=== PATIENT | female | born 1940 | race Caucasian/White ===

== ENCOUNTER 2016-07-10 12:25 | Emergency (ER) | payer OTHER ==
[2016-07-10 12:44] VITALS: RESP 16
[2016-07-10] MEDS ORDERED: NS 500 ML IV ONE ×2 (12:47→14:03)
[2016-07-10 13:04] LABS: ABSOLUTE IMMATURE GRANULOCYTES 0.14 10^3/uL (0.00-0.10); ADD DIFF? NO; ADD MORPH? NO; ADD SCAN? NO; ATYPICAL LYMPHOCYTE FLAG 20 (0-99); FRAGMENT RBC FLAG 0 (0-99); HEMATOCRIT 33.9 % (38.0-47.0); HEMOGLOBIN 12.1 g/dL (12.6-16.3); LEFT SHIFT FLG 0 (0-99); LIPEMIA HEMOLYSIS FLAG 90 (0-99); MEAN CELL HEMOGLOBIN 30.3 pg (27.9-34.1); MEAN CELL HEMOGLOBIN CONCENTR. 35.7 g/dL (32.4-36.7); PLATELET CLUMPS FLAG 10 (0-99); PLATELET COUNT 355 10^3/uL (150-400); RED BLOOD CELL COUNT 3.99 10^6/uL (4.18-5.33); RED CELL DISTRIBUTION WIDTH 12.5 % (11.5-15.2)
[2016-07-10 13:15] LABS: ALANINE AMINOTRANSFERASE 59 IU/L (9-52); ALBUMIN 3.1 g/dL (3.5-5.0); ALKALINE PHOSPHATASE 150 IU/L (38-126); ANION GAP 13 mEq/L (8-16); ASPARTATE AMINOTRANSFERASE 47 IU/L (14-46); BILIRUBIN,TOTAL 1.7 mg/dL (0.1-1.4); CALCIUM 8.6 mg/dL (8.5-10.4); CARBON DIOXIDE 23 mEq/l (22-31); CHLORIDE 92 mEq/L (97-110); CREATININE 0.6 mg/dL (0.6-1.0); GLOMERULAR FILTRATION RATE > 60; GLUCOSE 129 mg/dL (70-100); POTASSIUM 3.9 mEq/L (3.5-5.2); SODIUM 128 mEq/L (134-144); TOTAL PROTEIN 6.2 g/dL (6.3-8.2)
[2016-07-10] MEDS ORDERED: ONDANSETRON 4 MG/2 ML VIAL IVP ONE (13:25)
[2016-07-10 13:28] LABS: COLOR YELLOW; LEUKOCYTE ESTERASE,URINE NEGATIVE (NEGATIVE); NITRITE,URINE NEGATIVE (NEGATIVE)
[2016-07-10 13:40] LABS: MUCUS 2+ /lpf (NONE-1+)
[2016-07-10 13:41] LABS: AMORPHOUS 1+ /hpf (NONE-1+); BACTERIA TRACE /hpf (NONE SEEN)
--- NOTE | 2016-07-10 14:09 | UCPHY ---
H & P Patient Type: New Chief Complaint Nursing Narrative: C/o weakness, fatigue, weight loss, and nausea after returning from cruise 07/03/16. Pt states she had diarrhea on cruise that resolved 06/30/16. Denies abdominal pain, nausea. Time Seen by Provider: 07/10/16 12:48 HPI/ROS: This patient complains of a cough that she describes as a dry cough for past 10 days or so. She was prescribed a cough suppressant by her mid-level practitioner with persistent cough despite that. She started a cough suppressant on Saturday. She also complains of nausea, decreased appetite. She explains the symptoms 1st started while on a cruise on June 30 with diarrhea. The diarrhea has resolved after Imodium and she has actually not had a bowel movement now for 4 days. She reports mild abdominal discomfort in the upper half more than lower half of her belly as well. ROS: Fevers last week to 100. No high fevers or chills. No other constitutional symptoms. HEENT: No cold symptoms. Pulmonary: Cough is described in HPI. No pleuritic pain or respiratory distress. Cardiovascular: She denies any heart palpitations or lightheadedness. No chest pain. GI: Symptoms as per HPI otherwise negative. : No complaints. Her reports "this is the sickest that she has ever been, Doc." 10 point ROS is otherwise negative Source: Patient, Family (Patient's also provides history) Exam Limitations: No limitations - Personal History Current Tetanus Diphtheria and Acellular Pertussis (TDAP): Yes Tetanus Vaccine Date: 2007 - Medical/Surgical History PMH: Past surgical history of appendectomy when she was a child in [place] Hypercholesterolemia Hypertension Hx Asthma: No Hx Chronic Respiratory Disease: No Hx Diabetes: No Hx Cardiac Disease: Yes Hx Renal Disease: No Hx Cirrhosis: No Hx Alcoholism: No Hx HIV/AIDS: No Hx Splenectomy or Spleen Trauma: No Other PMH: [place] 2013, hyperlipidemia, HTN, appendectomy, tonsilectomy - Family History Significant Family History: No pertinent family hx - Social History Smoking Status: Never smoked Alcohol Use: None Drug Use: None Additional Social History: The couple return from their cruise on July 03. She did see the ship doctor who thought she had a viral illness causing her diarrhea at that time. - Physical Exam Exam: General Appearance: Pleasant petite 75-year-old female Alert, no distress. Eyes: Pupils equal and round no pallor or injection. ENT, Mouth: Mucous membranes dry. Respiratory: She has rhonchi at the left base. Otherwise clear to auscultation bilaterally. No respiratory distress. I appreciate no rales. No wheezing. Cardiovascular: Regular rate and rhythm. No murmur gallop or rub. No JVD. No peripheral edema. Gastrointestinal: Normoactive, soft, mild epigastric and right upper quadrant tenderness. Mild suprapubic tenderness. No guarding or rebound. Back: No CVA tenderness Neurological: Alert with no focal deficits. Skin: Warm and dry, no rashes. Musculoskeletal: Neck is supple nontender. Extremities are symmetrical, full range of motion. Psychiatric: Mood and affect normal DIFFERENTIAL DIAGNOSIS: After history and physical exam differential diagnosis was considered for pneumonia, Legionaire's, cholecystitis, diverticulitis, UTI Constitutional: Initial Vital Signs Temperature (C) 36.7 C 07/10/16 12:41 Heart Rate 92 07/10/16 12:41 Respiratory Rate 16 07/10/16 12:41 Blood Pressure 121/64 H 07/10/16 12:41 O2 Sat (%) 95 07/10/16 12:41 O2 Delivery Mode Room Air Allergies/Adverse Reactions: No Known Allergies Allergy (Verified 07/10/16 12:44) Home Medications: Medication Instructions Recorded Avapro 07/10/16 Ecotrin 07/10/16 Lipitor 07/10/16 Ondansetron Odt [Zofran Odt] 4 - 8 mg PO Q4PRN PRN #4 tab 07/10/16 Plavix 07/10/16 Promethazine HCl 07/10/16 levOFLOXACIN [Levaquin] 500 mg PO DAILY #6 tablet 07/10/16 Medical Decision Making - Diagnostics Imaging: Chest x-ray: Left lower lobe infiltrate by my interpretation consistent with pneumonia. Right upper quadrant ultrasound: Normal appearing liver and gallbladder with no evidence of cholestasis or gallstones per Dr. Martin who read the ultrasound ED Course/Re-evaluation: On review of labs patient has leukocytosis with white count around 14,000, mild hyponatremia, elevated alk-phos and LFTs-mild Given these initial results will pursue gallbladder ultrasound rule out cholecystitis She is treated for her pneumonia with expansion workup to include blood cultures and venous lactate with Levaquin p. o. after Zofran IV for mild nausea with improvement. Discussion: Patient here with pneumonia but negative for sepsis in terms of a negative SIRS criteria. Her lactate is normal. She appears well clinically and is tolerating good p.o. intake after Zofran. She does have mild hyponatremia as well they think is attributable to her anorexia and decreased p.o. intake versus mild SIADH due to pneumonia. I counseled regarding this. We did discuss the option of of admission but this patient much prefers to go home on Levaquin with close follow-up. - Data Points Laboratory Results: Laboratory Results 07/10/16 12:50 07/10/16 12:50 07/10/16 07/10/16 07/10/16 14:00 13:25 13:21 WBC RBC Hgb Hct MCV MCH MCHC RDW Plt Count MPV Neut % (Auto) Lymph % (Auto) [place] % (Auto) Eos % (Auto) Baso % (Auto) Nucleat RBC Rel Count Absolute Neuts (auto) Absolute Lymphs (auto) Absolute Monos (auto) Absolute Eos (auto) Absolute Basos (auto) Absolute Nucleated RBC Immature Gran % Immature Gran # VBG Lactic Acid 0.9 mmol/L mmol/L (0.7-2.1) Sodium Potassium Chloride Carbon Dioxide Anion Gap BUN Creatinine Estimated GFR Glucose Calcium Total Bilirubin AST ALT Alkaline Phosphatase Total Protein Albumin Lipase 33.0 IU/L IU/L (23-300) Urine Color YELLOW Urine Appearance HAZY Urine pH 6.0 (5.0-7.5) Ur Specific [place] 1.020 (1.002-1.030) Urine Protein TRACE H (NEGATIVE) Urine Ketones TRACE H (NEGATIVE) Urine Blood 1+ H (NEGATIVE) Urine Nitrate NEGATIVE (NEGATIVE) Urine Bilirubin POSITIVE H (NEGATIVE) Urine Urobilinogen 1.0 EU EU (0.2-1.0) Ur Leukocyte Esterase NEGATIVE (NEGATIVE) Urine RBC 1-3 /hpf /hpf (0-3) Urine WBC 5-10 /hpf H /hpf (0-3) Ur Epithelial Cells NONE SEEN /lpf /lpf (NONE-1+) Amorphous Sediment 1+ /hpf /hpf (NONE-1+) Urine Bacteria TRACE /hpf H /hpf (NONE SEEN) Hyaline Casts 5-10 /lpf H /lpf (0-1) Urine Mucus 2+ /lpf H /lpf (NONE-1+) Urine Glucose NEGATIVE (NEGATIVE) 07/10/16 07/10/16 12:50 12:50 WBC 14.27 10^3/uL H 10^3/uL (3.80-9.50) RBC 3.99 10^6/uL L 10^6/uL (4.18-5.33) Hgb 12.1 g/dL L g/dL (12.6-16.3) Hct 33.9 % L % (38.0-47.0) MCV 85.0 fL fL (81.5-99.8) MCH 30.3 pg pg (27.9-34.1) MCHC 35.7 g/dL g/dL (32.4-36.7) RDW 12.5 % % (11.5-15.2) Plt Count 355 10^3/uL 10^3/uL (150-400) MPV 9.0 fL fL (8.7-11.7) Neut % (Auto) 80.9 % H % (39.3-74.2) Lymph % (Auto) 6.0 % L % (15.0-45.0) [place] % (Auto) 11.8 % % (4.5-13.0) Eos % (Auto) 0.1 % L % (0.6-7.6) Baso % (Auto) 0.2 % L % (0.3-1.7) Nucleat RBC Rel Count 0.0 % % (0.0-0.2) Absolute Neuts (auto) 11.55 10^3/uL H 10^3/uL (1.70-6.50) Absolute Lymphs (auto) 0.85 10^3/uL L 10^3/uL (1.00-3.00) Absolute Monos (auto) 1.68 10^3/uL H 10^3/uL (0.30-0.80) Absolute Eos (auto) 0.02 10^3/uL L 10^3/uL (0.03-0.40) Absolute Basos (auto) 0.03 10^3/uL 10^3/uL (0.02-0.10) Absolute Nucleated RBC 0.00 10^3/uL 10^3/uL (0-0.01) Immature Gran % 1.0 % % (0.0-1.1) Immature Gran # 0.14 10^3/uL H 10^3/uL (0.00-0.10) VBG Lactic Acid Sodium 128 mEq/L L mEq/L (134-144) Potassium 3.9 mEq/L mEq/L (3.5-5.2) Chloride 92 mEq/L L mEq/L (97-110) Carbon Dioxide 23 mEq/l mEq/l (22-31) Anion Gap 13 mEq/L mEq/L (8-16) BUN 12 mg/dL mg/dL (7-23) Creatinine 0.6 mg/dL mg/dL (0.6-1.0) Estimated GFR > 60 Glucose 129 mg/dL H mg/dL (70-100) Calcium 8.6 mg/dL mg/dL (8.5-10.4) Total Bilirubin 1.7 mg/dL H mg/dL (0.1-1.4) AST 47 IU/L H IU/L (14-46) ALT 59 IU/L H IU/L (9-52) Alkaline Phosphatase 150 IU/L H IU/L (38-126) Total Protein 6.2 g/dL L g/dL (6.3-8.2) Albumin 3.1 g/dL L g/dL (3.5-5.0) Lipase Urine Color Urine Appearance Urine pH Ur Specific [place] Urine Protein Urine Ketones Urine Blood Urine Nitrate Urine Bilirubin Urine Urobilinogen Ur Leukocyte Esterase Urine RBC Urine WBC Ur Epithelial Cells Amorphous Sediment Urine Bacteria Hyaline Casts Urine Mucus Urine Glucose Medications Given: Discontinued Medications Sodium Chloride (Ns) 500 mls @ 0 mls/hr IV ONCE ONE PRN Reason: Wide Open Stop: 07/10/16 12:48 Last Admin: 07/10/16 13:20 Dose: 500 mls Sodium Chloride (Ns) 500 mls @ 0 mls/hr IV ONCE ONE PRN Reason: Wide Open Stop: 07/10/16 14:04 Last Admin: 07/10/16 14:07 Dose: 500 mls Levofloxacin (Levaquin) 500 mg PO EDNOW ONE PRN Reason: Protocol Stop: 07/10/16 13:25 Last Admin: 07/10/16 13:37 Dose: 500 mg Ondansetron HCl (Zofran) 4 mg IVP EDNOW ONE Stop: 07/10/16 13:26 Last Admin: 07/10/16 13:37 Dose: 4 mg Departure - Departure Disposition: Home, Routine, Self-Care Clinical Impression: Hyponatremia, Dehydration Pneumonia Qualifiers: Pneumonia type: due to unspecified organism Laterality: left Lung location: lower lobe of lung Qualified Code(s): J18.1 - Lobar pneumonia, unspecified organism Condition: Good Instructions: Community Acquired Pneumonia (ED) Additional Instructions: Diagnoses: 1. Pneumonia 2. Dehydration 3. Hyponatremia Plan: Drink plenty fluids such as electrolyte balance drinks like Gatorade or other. Salty food is okay for now. Levaquin antibiotic as prescribed for the next 6 days daily Colace stool softener if needed for constipation. Call primary care physician to arrange follow-up appointment for sometime within the next 3-5 days. Your electrolytes should be rechecked sometime over the next 5-10 days Zofran if needed for nausea Go to the emergency department for any significant worsening despite the treatment plan. Referrals: Verenice Rudolph MD [Primary Care Provider] - As per Instructions Prescriptions: levOFLOXACIN [Levaquin] 500 mg PO DAILY #6 tablet Ondansetron Odt [Zofran Odt] 4 - 8 mg PO Q4PRN PRN #4 tab PRN Reason: Vomiting - PQRS PQRS Measurement: 134: Depression screening and followup, PRIME MD-PHQ2 (12 years and older) Over the last 2 weeks, how often have you been bothered by any of the following problems? 1. Feeling down, depressed, or hopeless? 2. Little interest or pleasure in doing things? Patient answered no to both 1 and 2 130: Documentation of medications. Reviewed all patient medications, doses, route and frequency.]. 226: Do you smoke? [No.] 47: 65 and older: Advanced care planning. Patient designates surrogate decision maker as spouse. 51: 18 years old and older with diagnosis of COPD, spirometry performance. [NA 52: 18 years old and older with COPD and symptoms of COPD or FEV1<60% predicted prescribed a B Agonist. NA
[2016-07-10 14:42] VITALS: BP 138/72; PULSE 95; TEMP 97.9; O2SAT 95
== END 2016-07-10 14:42 | disposition home or self-care (01) ==
LOC: CED 12:25
DX: J18.1 Lobar pneumonia, unspecified organism (principal); E86.0 Dehydration; E87.1 Hypo-osmolality and hyponatremia
CPT/HCPCS: 71020; 76705; 96361; 96374; G0463; J2405; 80053-PO; 81003-PO; 81015-PO; 83605-PO; 83690-PO; 85025-PO; 99205-PO

== ENCOUNTER 2016-07-15 10:33 | Emergency (ER) | payer OTHER ==
[2016-07-15 10:46] VITALS: RESP 16
--- NOTE | 2016-07-15 11:51 | EDPHY ---
H & P Time Seen by Provider: 07/15/16 11:18 HPI/ROS: Chief complaint. Weakness, weight loss, difficulty eating HPI. Patient is a 75-year-old female with multiple problems. She has weakness and weight loss over the past 2 weeks. Symptoms began after she was on a cruise from [place] to [place] and back. Apparently there was a lot of gastrointestinal illness on the ship and she had presumed norovirus. She then developed a cough and was seen at [facility] on July 10 and diagnosed with left lower lobe pneumonia. It was also noted that she had elevated liver function test at that time and had a normal ultrasound of her liver and gallbladder. She is just finishing a course of Zithromax for her pneumonia and feels that her pneumonia symptoms are resolving. She has not had fever or shortness of breath. She does however have continued decreased appetite. ROS Constitutional. Weakness Eyes. no problems with vision ENT. no sore throat, no nasal drainage Cardiovascular. no chest pain Respiratory. Resolving cough Abdominal. Nausea without abdominal pain and decreased appetite . no problems urinating MS. no calf pain/swelling, no neck/back pain, no joint pain Skin. no rash Lymph. no swollen glands Neuro. no headache, no dizziness, no difficulty walking or with speech Past Medical/Surgical History: The past medical history is significant for an PA in 2013, dyslipidemia, hypertension, appendectomy, recent pneumonia Social History: , nonsmoker, no alcohol Smoking Status: Never smoked Physical Exam: General Appearance: Alert well-developed female mild distress vital signs are stable Eyes: Pupils equal and round no pallor or injection. ENT, Mouth: Mucous membranes are moist. Respiratory: There are no retractions, lungs are clear to auscultation. Cardiovascular: Regular rate and rhythm. Gastrointestinal: Abdomen is soft and nontender, no masses, bowel sounds normal. Neurological: Awake and alert, sensory and motor exams grossly normal. Skin: Warm and dry, no rashes. Musculoskeletal: Neck is supple nontender. Extremities symmetrical, full range of motion. Psychiatric: Patient is oriented X 3, there is no agitation. Constitutional: Initial Vital Signs Temperature (C) 36.4 C 07/15/16 10:41 Heart Rate 86 07/15/16 10:41 Respiratory Rate 16 07/15/16 10:41 Blood Pressure 132/73 H 07/15/16 10:41 O2 Sat (%) 97 07/15/16 10:41 O2 Delivery Mode Room Air Allergies/Adverse Reactions: No Known Allergies Allergy (Verified 07/15/16 10:46) Home Medications: Medication Instructions Recorded Avapro 07/10/16 Ecotrin 07/10/16 Lipitor 07/10/16 Ondansetron Odt [Zofran Odt] 4 - 8 mg PO Q4PRN PRN #4 tab 07/10/16 Plavix 07/10/16 Promethazine HCl 07/10/16 levOFLOXACIN [Levaquin] 500 mg PO DAILY #6 tablet 07/10/16 Ondansetron Odt [Zofran Odt] 4 mg PO Q4PRN PRN #7 tab 07/15/16 Medical Decision Making - Diagnostics Imaging: One-view chest x-ray interpreted by me shows resolving pneumonia Procedures: IV normal saline ED Course/Re-evaluation: On re-evaluation patient is stable. The patient and I discussed laboratory, imaging results. We discussed her elevated liver function tests. We discussed treatment plan and importance of follow-up and further evaluation. She expresses understanding and agreement I consulted and discussed the elevated liver function studies with Dr. Rene Martin , infectious Disease. I then ordered hepatitis a IgM study. He will follow the patient in the clinic The patient and her family tell me that she was not happy with her regular PCP as part of the workup for the these recent illnesses. She is in the process of changing positions. She would like to see an infectious disease physician as she is getting over these to recent illnesses of a gastroenteritis type illness and pneumonia Differential Diagnosis: Patient had previously hypo knee tree me a and this has resolved. She had an elevated white blood cell count with part of her diagnosis of pneumonia and this elevated white blood cell count hives resolved and her pneumonia seems to be improving. She has elevated liver function tests of unclear etiology though possible hepatitis or other viral syndrome. She had a negative ultrasound of her liver and gallbladder. - Data Points Laboratory Results: Laboratory Results 07/15/16 12:25 07/15/16 12:25 07/15/16 07/15/16 07/15/16 12:25 12:25 12:25 WBC 9.36 10^3/uL 10^3/uL (3.80-9.50) RBC 4.19 10^6/uL 10^6/uL (4.18-5.33) Hgb 12.7 g/dL g/dL (12.6-16.3) Hct 37.2 % L % (38.0-47.0) MCV 88.8 fL fL (81.5-99.8) MCH 30.3 pg pg (27.9-34.1) MCHC 34.1 g/dL g/dL (32.4-36.7) RDW 12.5 % % (11.5-15.2) Plt Count 420 10^3/uL H 10^3/uL (150-400) MPV 8.5 fL L fL (8.7-11.7) Neut % (Auto) 74.4 % H % (39.3-74.2) Lymph % (Auto) 12.7 % L % (15.0-45.0) [place] % (Auto) 10.6 % % (4.5-13.0) Eos % (Auto) 1.3 % % (0.6-7.6) Baso % (Auto) 0.4 % % (0.3-1.7) Nucleat RBC Rel Count 0.0 % % (0.0-0.2) Absolute Neuts (auto) 6.96 10^3/uL H 10^3/uL (1.70-6.50) Absolute Lymphs (auto) 1.19 10^3/uL 10^3/uL (1.00-3.00) Absolute Monos (auto) 0.99 10^3/uL H 10^3/uL (0.30-0.80) Absolute Eos (auto) 0.12 10^3/uL 10^3/uL (0.03-0.40) Absolute Basos (auto) 0.04 10^3/uL 10^3/uL (0.02-0.10) Absolute Nucleated RBC 0.00 10^3/uL 10^3/uL (0-0.01) Immature Gran % 0.6 % % (0.0-1.1) Immature Gran # 0.06 10^3/uL 10^3/uL (0.00-0.10) Sodium 134 mEq/L mEq/L (134-144) Potassium 4.3 mEq/L mEq/L (3.5-5.2) Chloride 98 mEq/L mEq/L (97-110) Carbon Dioxide 25 mEq/l mEq/l (22-31) Anion Gap 11 mEq/L mEq/L (8-16) BUN 10 mg/dL mg/dL (7-23) Creatinine 0.6 mg/dL mg/dL (0.6-1.0) Estimated GFR > 60 Glucose 100 mg/dL mg/dL (70-100) Calcium 9.4 mg/dL mg/dL (8.5-10.4) Total Bilirubin 1.1 mg/dL mg/dL (0.1-1.4) Conjugated Bilirubin 0.4 mg/dL mg/dL (0.0-0.5) Unconjugated Bilirubin 0.7 mg/dL mg/dL (0.0-1.1) AST 50 IU/L H IU/L (14-46) ALT 74 IU/L H IU/L (9-52) Alkaline Phosphatase 193 IU/L H IU/L (38-126) Total Protein 6.9 g/dL g/dL (6.3-8.2) Albumin 3.4 g/dL L g/dL (3.5-5.0) Lipase 84.0 IU/L IU/L (23-300) Urine Color Urine Appearance Urine pH Ur Specific [place] Urine Protein Urine Ketones Urine Blood Urine Nitrate Urine Bilirubin Urine Urobilinogen Ur Leukocyte Esterase Ur Culture Indicated? Urine Glucose Hepatitis A IgM Ab Pending 07/15/16 12:00 WBC RBC Hgb Hct MCV MCH MCHC RDW Plt Count MPV Neut % (Auto) Lymph % (Auto) [place] % (Auto) Eos % (Auto) Baso % (Auto) Nucleat RBC Rel Count Absolute Neuts (auto) Absolute Lymphs (auto) Absolute Monos (auto) Absolute Eos (auto) Absolute Basos (auto) Absolute Nucleated RBC Immature Gran % Immature Gran # Sodium Potassium Chloride Carbon Dioxide Anion Gap BUN Creatinine Estimated GFR Glucose Calcium Total Bilirubin Conjugated Bilirubin Unconjugated Bilirubin AST ALT Alkaline Phosphatase Total Protein Albumin Lipase Urine Color YELLOW Urine Appearance CLEAR Urine pH 6.0 (5.0-7.5) Ur Specific [place] 1.015 (1.002-1.030) Urine Protein NEGATIVE (NEGATIVE) Urine Ketones TRACE H (NEGATIVE) Urine Blood NEGATIVE (NEGATIVE) Urine Nitrate NEGATIVE (NEGATIVE) Urine Bilirubin NEGATIVE (NEGATIVE) Urine Urobilinogen 4.0 EU H EU (0.2-1.0) Ur Leukocyte Esterase NEGATIVE (NEGATIVE) Ur Culture Indicated? NOT INDICATED (NI) Urine Glucose NEGATIVE (NEGATIVE) Hepatitis A IgM Ab Departure - Departure Disposition: Home, Routine, Self-Care Clinical Impression: Elevated liver enzymes Pneumonia Qualifiers: Pneumonia type: due to unspecified organism Laterality: left Lung location: lower lobe of lung Qualified Code(s): J18.1 - Lobar pneumonia, unspecified organism Condition: Good Instructions: Community Acquired Pneumonia (ED) Additional Instructions: Try to drink fluids, including popsicles and milk shakes. Finish your last day of antibiotics. Return for worsening symptoms. Follow up with infectious disease physician, Dr. Rene Martin, this week. Zofran if needed for nausea. Referrals: Bereket Alcala DO [Primary Care Provider] - As per Instructions Rene Martin MD [Medical Doctor] - 2-3 days, call for appt. Prescriptions: Ondansetron Odt [Zofran Odt] 4 mg PO Q4PRN PRN #7 tab PRN Reason: Nausea/Vomiting, Use 1st
[2016-07-15 12:16] LABS: COLOR YELLOW; LEUKOCYTE ESTERASE,URINE NEGATIVE (NEGATIVE); NITRITE,URINE NEGATIVE (NEGATIVE)
[2016-07-15 12:42] LABS: % IMMATURE GRANULYOCYTES 0.6 % (0.0-1.1); ABSOLUTE IMMATURE GRANULOCYTES 0.06 10^3/uL (0.00-0.10); ADD DIFF? NO; ADD MORPH? NO; ADD SCAN? NO; ATYPICAL LYMPHOCYTE FLAG 20 (0-99); FRAGMENT RBC FLAG 0 (0-99); HEMATOCRIT 37.2 % (38.0-47.0); HEMOGLOBIN 12.7 g/dL (12.6-16.3); LEFT SHIFT FLG 0 (0-99); LIPEMIA HEMOLYSIS FLAG 90 (0-99); MEAN CELL HEMOGLOBIN 30.3 pg (27.9-34.1); MEAN CELL HEMOGLOBIN CONCENTR. 34.1 g/dL (32.4-36.7); MEAN CELL VOLUME 88.8 fL (81.5-99.8); MEAN PLATELET VOLUME 8.5 fL (8.7-11.7); PLATELET CLUMPS FLAG 10 (0-99); PLATELET COUNT 420 10^3/uL (150-400); RED BLOOD CELL COUNT 4.19 10^6/uL (4.18-5.33); RED CELL DISTRIBUTION WIDTH 12.5 % (11.5-15.2)
[2016-07-15 13:04] LABS: ALANINE AMINOTRANSFERASE 74 IU/L (9-52); ALBUMIN 3.4 g/dL (3.5-5.0); ALKALINE PHOSPHATASE 193 IU/L (38-126); ANION GAP 11 mEq/L (8-16); ASPARTATE AMINOTRANSFERASE 50 IU/L (14-46); BILIRUBIN,TOTAL 1.1 mg/dL (0.1-1.4); BILIRUBIN-CONJUGATED 0.4 mg/dL (0.0-0.5); BILIRUBIN-UNCONJUGATED 0.7 mg/dL (0.0-1.1); CALCIUM 9.4 mg/dL (8.5-10.4); CARBON DIOXIDE 25 mEq/l (22-31); CHLORIDE 98 mEq/L (97-110); CREATININE 0.6 mg/dL (0.6-1.0); GLOMERULAR FILTRATION RATE > 60; GLUCOSE 100 mg/dL (70-100); POTASSIUM 4.3 mEq/L (3.5-5.2); SODIUM 134 mEq/L (134-144); TOTAL PROTEIN 6.9 g/dL (6.3-8.2)
[2016-07-15 14:09] VITALS: BP 157/76; PULSE 82; TEMP 98.1; O2SAT 95
== END 2016-07-15 14:07 | disposition home or self-care (01) ==
DX: J18.1 Lobar pneumonia, unspecified organism (principal); R74.8 Abnormal levels of other serum enzymes; I10 Essential (primary) hypertension
CPT/HCPCS: 86709-90

== ENCOUNTER → 2016-09-11 | Outpatient (CLI) | payer OTHER | LOC: FIMAGING 08:54 | PROVIDERS: ATTEND Family Medicine | DX: Z12.31 Encounter for screening mammogram for malignant neoplasm of breast (principal) | CPT/HCPCS: G0202 ==

== ENCOUNTER → 2016-09-20 | Outpatient (CLI) | payer OTHER | LOC: BHFA 09:45 | PROVIDERS: ATTEND Internal Medicine Cardiovascular Disease | DX: I25.10 Atherosclerotic heart disease of native coronary artery without angina pectoris (principal); I10 Essential (primary) hypertension; R94.31 Abnormal electrocardiogram [ECG] [EKG]; I38 Endocarditis, valve unspecified ==

== ENCOUNTER → 2016-10-09 | Outpatient (CLI) | payer OTHER | LOC: BHFA 13:15 | PROVIDERS: ATTEND Internal Medicine Cardiovascular Disease | DX: I25.10 Atherosclerotic heart disease of native coronary artery without angina pectoris (principal); I10 Essential (primary) hypertension | CPT/HCPCS: 78452; 93017; 93306; A9500 ==

== ENCOUNTER → 2018-01-21 | Outpatient (CLI) | payer OTHER | LOC: BHFA 09:15 | PROVIDERS: ATTEND Internal Medicine Cardiovascular Disease | DX: I25.10 Atherosclerotic heart disease of native coronary artery without angina pectoris (principal) ==

== ENCOUNTER → 2018-02-04 | Outpatient (CLI) | payer OTHER | LOC: BHFA 09:45 | PROVIDERS: ATTEND Internal Medicine Cardiovascular Disease | DX: I35.1 Nonrheumatic aortic (valve) insufficiency (principal); I25.10 Atherosclerotic heart disease of native coronary artery without angina pectoris; I27.20 Pulmonary hypertension, unspecified ==